=== PATIENT | female | born 1980 | race African-American/Black ===

== ENCOUNTER → 2021-08-27 | Outpatient (CLI) | payer BC, OTHER ==
--- NOTE | 2021-08-27 17:50 | CARD ---
MR#: [id number] Date of Study: 08/27/2021 Ordering Physician: CACHORRO GOMES, Referring Physician: CACHORRO GOMES Tech: Kyara Delgado [facility] APPROVED REPORT EXAM: Two-dimensional and M-mode echocardiogram with Doppler and color Doppler. Other Information Quality : AverageLimitedTechnically LimitedExcellentHR: 59bpm Rhythm : NSR INDICATION Cardiomyopathy RISK FACTORS Hypertension 2D DIMENSIONS RVDd1.8 (2.9-3.5cm)Left Atrium(2D)3.8 (1.6-4.0cm) IVSd0.9 (0.7-1.1cm)Aortic Root(2D)3.4 (2.0-3.7cm) LVDd5.2 (3.9-5.9cm)LVOT Diameter2.0 (1.8-2.4cm) PWd0.8 (0.7-1.1cm)LVDs3.8 (2.5-4.0cm) FS (%) 27.8 %SV70.4 ml Aortic Valve AoV Peak Bruno.109.9cm/sAoV VTI26.7cm AO Peak GR.4.8mmHgLVOT Peak Bruno.87.1cm/s AO Mean GR.3mmHgAVA (VMAX)2.40cm2 Mitral Valve MV E Wwjebpmi47.6cm/sMV DECEL MYHY457jz MV A Xxheyfiy95.0cm/sE/A Ratio1.1 Pulmonary Valve PV Peak Uuizxhbk33.6cm/s Tricuspid Valve TR P. Ptutyxxx817yx/sTR Peak Gr.19mmHg LEFT VENTRICLE The left ventricle is normal size. There is normal left ventricular wall thickness. The left ventricu lar systolic function is mildly decreased. Ejection fraction is 40 to 45%. There is mild global hypo kinesis of the left ventricle. The left ventricular diastolic function and filling is normal for age. RIGHT VENTRICLE The right ventricle is normal size. There is normal right ventricular wall thickness. The right ventr icular systolic function is normal. ATRIA The left atrium size is normal. The right atrium size is normal. The interatrial septum is intact wit h no evidence for an atrial septal defect or patent foramen ovale as noted on 2-D or Doppler imaging. AORTIC VALVE The aortic valve is normal in structure and function. Doppler and Color Flow revealed no significant aortic regurgitation. There is no significant aortic valvular stenosis. MITRAL VALVE The mitral valve is normal in structure and function. There is no evidence of mitral valve prolapse. There is no mitral valve stenosis. Doppler and Color-flow revealed mild mitral regurgitation. TRICUSPID VALVE The tricuspid valve is normal in structure and function. Doppler and Color Flow revealed trace tricus pid regurgitation. Estimated PAP 20 mmHg. There is no tricuspid valve stenosis. PULMONIC VALVE The pulmonary valve is normal in structure and function. Doppler and Color Flow revealed trace to mil d pulmonic valvular regurgitation. GREAT VESSELS The aortic root is normal in size. The ascending aorta is normal in size. The IVC is normal in size a nd collapses >50% with inspiration. PERICARDIAL EFFUSION There is no evidence of significant pericardial effusion. Critical Notification Critical Value: No <Conclusion> The left ventricle is normal size. The left ventricular systolic function is mildly decreased. Ejection fraction is 40 to 45%. There is mild global hypokinesis of the left ventricle. Doppler and Color Flow revealed no significant aortic regurgitation. There is no significant aortic valvular stenosis. Doppler and Color-flow revealed mild mitral regurgitation. Doppler and Color Flow revealed trace tricuspid regurgitation. Estimated PAP 20 mmHg. Signed by : Varinder Allred MD Electronically Approved : 08/27/2021 17:50:22
== END ==
LOC: ECHO 08-11 08:49
PROVIDERS: ATTEND Internal Medicine Cardiovascular Disease
DX: I34.0 Nonrheumatic mitral (valve) insufficiency (principal); I37.1 Nonrheumatic pulmonary valve insufficiency; I42.9 Cardiomyopathy, unspecified
CPT/HCPCS: 93306; C8929